=== PATIENT | male | born 1950 | race Caucasian/White ===

== ENCOUNTER → 2018-12-03 | Outpatient (CLI) | payer MEDICARE, BC ==
[~2018-12-03] MED LIST: REGADENOSON 0.4 MG/5 ML SYRINGE IV ONE
--- NOTE | 2018-12-03 09:32 | US ---
EXAMINATION TYPE: US duplex aorta DATE OF EXAM: 12/03/2018 COMPARISON: NONE CLINICAL HISTORY: I25.10. CAD EXAM MEASUREMENTS: Abdominal Aorta: Proximal: 2.5 x 2.5cm Mid: 2.6 x 2.7cm Distal: 4.5 x 3.5cm Bifurcation: RT: 1.3 x 1.5cm LT: 1.4 x 1.1cm Distal AAA with calcifications and plaque noted within Grayscale, color Doppler, spectral Doppler imaging performed. Aorta is somewhat tortuous with echogen ic appearance. There is color flow, suspect turbulent flow. IMPRESSION: Infrarenal abdominal aortic aneurysm.
--- NOTE | 2018-12-03 11:45 | P.STRESS ---
- Stress Test Note Stress Test Results/Findings: Exam Performed: NM stress lexiscan cardiolite Exam Date: 12/03/18 Reason for Exam: SOB Height: 5 ft 7 in Weight: 87.09 kg Protocol: LEXISCAN Stage: NA Duration of Exercise: NA Resting Heart Rate: 68 Resting Blood Pressure: 126/91 Maximum Achieved Heart Rate: 74 Maximum Achieved Blood Pressure: 131/85 85% PMHR: NA 100% PMHR: NA METS: NA Technologist Comment: Stress Test Results/Findings: This is a 68-year-old male with history of hypertension, diabetes, previous MT being evaluated for cardiac status. Stress data: Baseline EKG showed sinus rhythm with non specific intervertebral conduction delay and occasional PVCs. Blood pressure at rest was 126/91 with pulse rate of 68. A standard dose of Lexiscan was infused. EKGs during and after infusion did not reveal any significant changes from the baseline. Final impression: #1. Negative Lexiscan stress test #2. Report on echo images to begin by the radiologist
--- NOTE | 2018-12-03 13:23 | EST ---
Stress Test Results/Findings: Exam Performed: NM stress lexiscan cardiolite Exam Date: 12/03/18 Reason for Exam: SOB Height: 5 ft 7 in Weight: 87.09 kg Protocol: LEXISCAN Stage: NA Duration of Exercise: NA Resting Heart Rate: 68 Resting Blood Pressure: 126/91 Maximum Achieved Heart Rate: 74 Maximum Achieved Blood Pressure: 131/85 85% PMHR: NA 100% PMHR: NA METS: NA Technologist Comment: Stress Test Results/Findings: This is a 68-year-old male with history of hypertension, diabetes, previous [place] being evaluated for cardiac status. Stress data: Baseline EKG showed sinus rhythm with non specific intervertebral conduction delay and occasional PVCs. Blood pressure at rest was 126/91 with pulse rate of 68. A standard dose of Lexiscan was infused. EKGs during and after infusion did not reveal any significant changes from the baseline. Final impression: #1. Negative Lexiscan stress test #2. Report on nuclear images to begin by the radiologist SETH
--- NOTE | 2018-12-03 14:54 | NM ---
"EXAMINATION TYPE: NM stress lexiscan cardiolite DATE OF EXAM: 12/03/2018 COMPARISON: NONE HISTORY: Shortness of breath, history of myocardial infarction TECHNIQUE: After the intravenous administration of 10.01 mCi Tc 99m Sestamibi - Cardiolite resting S PECT images acquired 45 minutes post injection. The patient received 0.4mg Lexiscan, 26.1 mCi Tc 99m Sestamibi - Stress images obtained [address] injection FINDINGS: Review of stress and rest SPECT images demonstrates decreased radio pharmaceutical uptake along the i nferior wall on stress and rest images and some decreased uptake in the apex somewhat greater on stre ss as compared to rest images. Gated analysis shows global hypokinesis, possible paradoxical wall mot ion inferior wall, with an estimated left ventricular ejection fraction of 15 %. IMPRESSION: Findings compatible with prior infarct. 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 Ejection fraction calculated at 50%. Consider echocardiographic c orrelation. A Yellow level critical message alert has been initiated for Misbah Ha MD via the [facility] 36 0 | Critical Results System on 12/03/2018 2:51 PM. This message alert has been sent to Misbah Ha MD via the preferences provided by the clinician for the receipt of Radiology Critical Findings. Mess age ID [id number]."
== END | disposition home or self-care (01) ==
LOC: RADUSMAIN 07:41
PROVIDERS: ATTEND Family Medicine
DX: I71.4 Abdominal aortic aneurysm, without rupture (principal); I25.10 Atherosclerotic heart disease of native coronary artery without angina pectoris
CPT/HCPCS: 93017; 93979; 78452; A9500; J2785

== ENCOUNTER → 2019-01-01 | Outpatient (CLI) | payer MEDICARE, BC ==
[2019-01-01 15:01] LABS: HCT 42.4 % (39.0-53.0); HGB 14.2 gm/dL (13.0-17.5); MCH 33.4 pg (25.0-35.0); MCHC 33.6 g/dL (31.0-37.0); MCV 99.5 fL (80.0-100.0); Mean Platelet Volume 6.9; Platelet Count 250 k/uL (150-450); RBC 4.26 m/uL (4.30-5.90); RDW 12.8 % (11.5-15.5); WBC 9.6 k/uL (3.8-10.6)
[2019-01-01 15:13] LABS: Anion Gap 10 mmol/L; Blood Urea Nitrogen 22 mg/dL (9-20); Carbon Dioxide 26 mmol/L (22-30); Chloride 104 mmol/L (98-107); Potassium 4.5 mmol/L (3.5-5.1); Sodium 140 mmol/L (137-145)
== END | disposition home or self-care (01) ==
LOC: LABPAT 13:38
PROVIDERS: ATTEND Internal Medicine Cardiovascular Disease
DX: Z01.812 Encounter for preprocedural laboratory examination (principal)
CPT/HCPCS: 80051; 82565; 84520; 85027

== ENCOUNTER → 2019-01-10 | Day surgery (SDC) | payer MEDICARE, BC ==
[2019-01-08 15:43] VITALS: BMI 29.6
[~2019-01-10] MED LIST changes: +ALPRAZolam 0.25 MG TAB PO PRN; +ALPRAZolam 0.5 MG TAB PO PRN; +ASPIRIN 325 MG TAB PO STA; +ATORVASTATIN 80 MG TAB PO STA; +HEPARIN SODIUM 1,000 UN/ML (10ML VL) IV ONE; +HEPARIN SODIUM 1,000 UN/ML (10ML VL) ONE; +IOPAMIDOL-370 125ML BTL INJ ONE; +LIDOCAINE 1% INJ 10MG/ML (20 ML MDV) ONE; +LIDOCAINE 1% INJ 10MG/ML (20 ML MDV) SQ ONE; +MIDAZOLAM (PF) 2 MG/2 ML VIAL IV ONE; +NITROGLYCERIN SL TABS 0.4 MG TAB SUBLINGUAL PRN; -REGADENOSON 0.4 MG/5 ML SYRINGE IV ONE; +SODIUM CHLORIDE 0.9% 1,000 ML in EMPTY BAG 1 BAG IV ONE; +VERAPAMIL 2.5 MG/ML 2 ML AMP ONE; +VERAPAMIL SYRINGE (5 MG/10 ML) INTRAARTER ONE; +fentaNYL (PF) 50 MCG/ML 2 ML AMP IV ONE; +fentaNYL (PF) 50 MCG/ML 2 ML AMP ONE
[2019-01-10 09:51] VITALS: RESP 18; TEMP 96.8
[2019-01-10 10:03] LABS: Glucose,Whole Blood 118 mg/dL (75-99)
[2019-01-10 16:39] VITALS: BP 116/60; PULSE 66
--- NOTE | 2019-02-10 17:02 | P.CARDCATH ---
Date of Procedure: 01/10/19 Preoperative Diagnosis: Ischemic heart disease and exertional shortness of breath Postoperative Diagnosis: Stable coronary artery disease with total occlusion of the RCA, ischemic cardiomyopathy with ejection fraction about 30 percent Procedure(s) Performed: Left heart catheterization with selective coronary arteriography and left ventriculography Description of Procedure: HISTORY: This is a 68-year-old gentleman with history of known ischemic heart disease with previous inferior wall KS who was recently seen in the office with complaints of increasing shortness of breath. Patient is advised to have a cardiac catheterization to rule out any progression of ischemic heart disease. CONSENT:I have discussed the risks, benefits and alternative therapies for the above-mentioned procedure and for both sedation/analgesia as well as necessary blood product administration, if indicated, as they pertain to this patient. The patient has indicated understanding and acceptance of the risks and procedures discussed. PROCEDURE: Patient was brought to the lab in a fasting state. Patient was given some IV sedation. The right wrist is infiltrated with lidocaine and right radial artery was entered using Seldinger technique. A 6-Egyptian catheter was left in place and selective coronary arteriography and left ventriculography was performed. Patient tolerated the procedure well. TR band was applied for hemostasis. No immediate complications were noted and patient was transferred to [facility] in a stable condition Conscious Sedation: Versed 1mg Fentanyl 25 g Duration 22minutes HEMODYNAMICS: The aortic pressure is about 100/70. Left ventricular end- diastolic pressure is about 8-10. There was no gradient across the aortic valve SELECTIVE CORONARY ARTERIOGRAPHY: LEFT MAIN: This is of normal length and free of occlusive disease THE LEFT ANTERIOR DESCENDING CORONARY ARTERY: . This is a fair caliber vessel giving rise to good-sized diagonal branch. The LAD. Because small in caliber in the distal distribution. No significant focal occlusive disease noted in the LAD system THE LEFT CIRCUMFLEX AND IS CORONARY ARTERY: This is a moderate caliber vessel giving rise to small apical segment and good-sized OM branch. The circumflex coronary artery has diffuse mild plaque without any Sigmund focal occlusive lesions THE RIGHT CORONARY ARTERY: This is a codominant vessel which is totally occluded in the midportion. There are ipsilateral collateral filling the distal RCA which is being filled slowly. There is mild diffuse plaque in the distal RCA LEFT VENTRICULOGRAPHY: . This revealed hypokinesis of the inferobasal segment with overall left ankle function, moderate to severely impaired. Ejection fraction probably in the range of 30% FINAL IMPRESSION: Stable coronary artery disease with a total occlusion of the RCA. The left coronary system is free of any significant occlusive disease PLAN: Maximum medical therapy and this factor modification. If her LV function continues to be poor, patient may be candidate for AICD implantation PROGNOSIS: Guarded
== END ==
LOC: CATHCVL 09:19
PROVIDERS: ATTEND Internal Medicine Cardiovascular Disease
DX: I25.10 Atherosclerotic heart disease of native coronary artery without angina pectoris (principal); I11.0 Hypertensive heart disease with heart failure; I50.42 Chronic combined systolic (congestive) and diastolic (congestive) heart failure; I25.82 Chronic total occlusion of coronary artery; I25.5 Ischemic cardiomyopathy; E78.5 Hyperlipidemia, unspecified; I25.2 Old myocardial infarction; E11.9 Type 2 diabetes mellitus without complications; Z87.891 Personal history of nicotine dependence; J44.9 Chronic obstructive pulmonary disease, unspecified; Z79.84 Long term (current) use of oral hypoglycemic drugs; Z79.82 Long term (current) use of aspirin; Z79.899 Other long term (current) drug therapy
CPT/HCPCS: 93458; C1769 ×2; C1894; J2001; J3010; J1644; Q9967; J2250

== ENCOUNTER → 2019-08-08 | Outpatient (CLI) | payer MEDICARE, BC ==
--- NOTE | 2019-08-08 11:33 | XR ---
EXAMINATION TYPE: XR Hip Complete RT DATE OF EXAM: 08/08/2019 COMPARISON: NONE HISTORY: Pain TECHNIQUE: 2 views submitted FINDINGS: There is no evidence of erosive change or acute fracture. Mild concentric narrowing of the joint spac e. Calcifications in the pelvis likely vascular. IMPRESSION: 1. No evidence of acute fracture or dislocation. 2. Mild arthropathy.
== END | disposition home or self-care (01) ==
LOC: RADXRMAIN 09:34
PROVIDERS: ATTEND Family Medicine
DX: M16.11 Unilateral primary osteoarthritis, right hip (principal)
CPT/HCPCS: 73502

== ENCOUNTER → 2020-05-14 | Outpatient (CLI) | payer MEDICARE, BC ==
--- NOTE | 2020-05-17 08:33 | US ---
EXAMINATION TYPE: US scrotum with doppler. Grayscale and color Doppler Duplex imaging performed of mary cali scrotum. DATE OF EXAM: 05/14/2020 COMPARISON: NONE CLINICAL HISTORY: n43.3. Swelling left testicle EXAM MEASUREMENTS: TESTICLES: Right Testicle: 3.7 x 2.1 x 3.1 cm Left Testicle: 4.6 x 2.4 x 2.9 cm EPIDIDYMIS HEAD: Right Epididymis: 1.2 cm Left Epididymis: 1.1 cm Doppler performed to assess for testicular vascularity; good bilateral color flow and waveforms are s een. There is no evidence of testicular torsion. Presence of hydroceles: Yes, on the left measuring 10.6 x 7.7 x 8.4 cm Presence of varicoceles: No Large, left side hydrocele Satisfactory blood flow to both testicles noted. IMPRESSION: Massive large left scrotal fluid collection or hydrocele is present accounting for abnorm ality on physical exam.
== END | disposition home or self-care (01) ==
LOC: RADUSWWP 16:56
PROVIDERS: ATTEND Family Medicine
DX: N43.3 Hydrocele, unspecified (principal)
CPT/HCPCS: 76870; 93975

== ENCOUNTER → 2021-04-01 | Outpatient (CLI) | payer MEDICARE, BC ==
[2021-04-02 04:37] LABS: Magnesium 2.1 mg/dL (1.5-2.4)
[2021-04-02 04:38] LABS: African American GFR (CKD) 101.4 (60.0-200.0); Anion Gap 9.4 mmol/L (4.00-12.00); Calcium 9.2 mg/dL (8.7-10.3); Carbon Dioxide 25.6 mmol/L (21.6-31.8); Non-African American GFR(CKD) 87.5 (60.0-200.0)
== END | disposition home or self-care (01) ==
LOC: LABWHC1 16:06
PROVIDERS: ATTEND Internal Medicine Cardiovascular Disease
DX: I49.3 Ventricular premature depolarization (principal); I42.9 Cardiomyopathy, unspecified
CPT/HCPCS: 36415; 80048; 83735

== ENCOUNTER → 2021-10-04 | Outpatient (CLI) | payer MEDICARE, BC ==
[2021-10-04 11:20] LABS: African American GFR (CKD) >90 (>60 ml/min/1.73 sqM); Blood Urea Nitrogen 17 mg/dL (9-20); Non-African American GFR(CKD) 89 (>60 ml/min/1.73 sqM)
--- NOTE | 2021-10-04 12:06 | CT ---
EXAMINATION TYPE: CT chest w con DATE OF EXAM: 10/04/2021 COMPARISON: None HISTORY: pulmonary nodule CT DLP: 489.3 mGycm Automated exposure control for dose reduction was used. CONTRAST: CT scan of the chest is performed with IV Contrast, patient injected with 100 mL of Isovue 300. FINDINGS: LUNGS: New 5.5 mm pulmonary nodule superior segment left lower lobe seen best on image 26. No additio nal nodules are evident at this time. There is no evidence for infiltrate. No volume loss. There is n o pleural effusion or pneumothorax seen. The tracheobronchial tree is patent. MEDIASTINUM: There are no greater than 1 cm hilar or mediastinal lymph nodes. No pericardial effusi on is seen. Thoracic aorta is of normal caliber. The heart is not enlarged. Small hiatal hernia is n oted. UPPER ABDOMEN: 2 cm cyst upper pole left kidney. OTHER: No additional significant abnormality is seen. IMPRESSION: 5.5 mm nodular density left upper lobe. Consider follow-up study in one year.
--- NOTE | 2021-10-04 12:39 | CT ---
EXAMINATION TYPE: CT lumbar spine wo con DATE OF EXAM: 10/04/2021 11:46 AM COMPARISON: None HISTORY: low back pain CT DLP: 1013.5 mGycm Automated exposure control for dose reduction was used. Unenhanced CT of the lumbar spine was performed. Bone and soft tissue window settings are submitted as well as coronal and sagittal reconstructions. L1-L2: Normal disc space height. No disc herniation protrusion or central stenosis. No facet joint arthropathy. No evidence for foraminal encroachment. L2-L3: Normal disc space height. No disc herniation protrusion or central stenosis. No facet joint arthropathy. No evidence for foraminal encroachment. L3-L4: Mild degenerative space narrowing with mild posterior disc bulge. No evidence of herniation or protrusion. Foramina are patent bilaterally. Facet joint arthropathy. L4-L5: Moderate degenerative disc space narrowing with posterior disc bulge. Particularly of the lig amentum flavum and facet joint arthropathy contribute to moderate central stenosis. Left foraminal en croachment identified. L5-S1: Moderate to severe degenerative disc space narrowing. Posterior disc bulge with partial encaps ulating spur resulting in right lateral recess stenosis and right foraminal encroachment. There is infrarenal abdominal aortic aneurysm with estimated measurement of 6.1 x 5.5 cm. IMPRESSION: 1. Infrarenal abdominal aortic aneurysm. 2. Multilevel degenerative disc disease. 3. Moderate central stenosis L4-5.
== END | disposition home or self-care (01) ==
LOC: RADCTMAIN 10:21
PROVIDERS: ATTEND Family Medicine
DX: I71.4 Abdominal aortic aneurysm, without rupture (principal); M48.061 Spinal stenosis, lumbar region without neurogenic claudication; M51.37 Other intervertebral disc degeneration, lumbosacral region; R91.1 Solitary pulmonary nodule
CPT/HCPCS: 82565; 84520; 72131; 71260; 36415; Q9967

== ENCOUNTER → 2021-10-14 | Outpatient (CLI) | payer MEDICARE, BC ==
[2021-10-14 10:56] LABS: African American GFR (CKD) >90 (>60 ml/min/1.73 sqM); Blood Urea Nitrogen 16 mg/dL (9-20); Non-African American GFR(CKD) 87 (>60 ml/min/1.73 sqM)
--- NOTE | 2021-10-14 12:51 | CT ---
EXAMINATION TYPE: CT angio abdomen pelvis DATE OF EXAM: 10/14/2021 12:39 PM COMPARISON: HISTORY: AAA w/o rupture CT DLP: 922.1 mGycm Automated exposure control for dose reduction was used. TECHNIQUE: Performed without and with IV Contrast, patient injected with 100 mL of Isovue 370. . FINDINGS: LUNG BASES: Heart is enlarged. Subsegmental changes involving both lung bases most typical of atelect asis. ABDOMEN AND PELVIS: Moderate-sized hiatal hernia. Liver and spleen are homogeneous. Adrenal glands have a normal morpholo gy. No gallstones. Pancreas has a normal appearance. The bowel gas pattern nonspecific without obstru ction. Hypertrophic and degenerative change spine. No hydronephrosis or nephrolithiasis. Hypodensitie s within the kidneys bilaterally are most likely on the basis of simple cysts with the largest seen i nvolving the upper pole the left kidney measuring 2.1 cm and 5 Hounsfield units. Fat-containing bilat eral inguinal hernia and small periumbilical fat-containing hernia. AORTA: There is ectasia of the aorta with a single renal arteries demonstrate a atherosclerotic change but n o significant stenosis. Origin of the SMA and celiac axis appear to be patent with mild atherosclerot ic changes. There is a infrarenal abdominal aortic aneurysm originating approximately 3 to 4 cm below the lowest renal artery and extending to the aortic bifurcation with a maximal dimension of 4.5 x 4.9 cm. Mild e ctasia of the iliac arteries demonstrate atherosclerotic changes IMPRESSION: 1. Infrarenal abdominal aortic aneurysm extending to the aortic bifurcation measuring 4.5 x 4.9 cm.
== END | disposition home or self-care (01) ==
LOC: RADCTMAIN 09:54
PROVIDERS: ATTEND Surgery
DX: I71.4 Abdominal aortic aneurysm, without rupture (principal)
CPT/HCPCS: 82565; 84520; 36415; 74174; Q9967

== ENCOUNTER 2021-10-25 06:55 | Inpatient (IN) | payer MEDICARE, BC ==
[2021-10-21 11:57] VITALS: BMI 29.6
[~2021-10-25 06:55] MED LIST changes: -ALPRAZolam 0.25 MG TAB PO PRN; -ALPRAZolam 0.5 MG TAB PO PRN; -ASPIRIN 325 MG TAB PO STA; -ATORVASTATIN 80 MG TAB PO STA; -HEPARIN SODIUM 1,000 UN/ML (10ML VL) IV ONE; -HEPARIN SODIUM 1,000 UN/ML (10ML VL) ONE; -IOPAMIDOL-370 125ML BTL INJ ONE; -LIDOCAINE 1% INJ 10MG/ML (20 ML MDV) ONE; -LIDOCAINE 1% INJ 10MG/ML (20 ML MDV) SQ ONE; -MIDAZOLAM (PF) 2 MG/2 ML VIAL IV ONE; -NITROGLYCERIN SL TABS 0.4 MG TAB SUBLINGUAL PRN; -VERAPAMIL 2.5 MG/ML 2 ML AMP ONE; -VERAPAMIL SYRINGE (5 MG/10 ML) INTRAARTER ONE; -fentaNYL (PF) 50 MCG/ML 2 ML AMP IV ONE; -fentaNYL (PF) 50 MCG/ML 2 ML AMP ONE
[2021-10-25 07:29] LABS: Glucose,Whole Blood 125 mg/dL (75-99)
[2021-10-25 07:44] LABS: Basophils # (A) 0.1 k/uL (0-0.2); Basophils % (A) 1 %; Eosinophils # (A) 0.3 k/uL (0-0.7); Eosinophils % (A) 4 %; HCT 44.4 % (39.0-53.0); HGB 14.8 gm/dL (13.0-17.5); Lymphocytes # (A) 2.1 k/uL (1.0-4.8); Lymphocytes % (A) 27 %; MCH 33.7 pg (25.0-35.0); MCHC 33.4 g/dL (31.0-37.0); MCV 100.9 fL (80.0-100.0); Mean Platelet Volume 7.1; Monocytes # (A) 0.7 k/uL (0-1.0); Monocytes % (A) 9 %; Neutrophils # (A) 4.4 k/uL (1.3-7.7); Neutrophils % (A) 56 %; Platelet Count 277 k/uL (150-450); RDW 12.2 % (11.5-15.5); WBC 7.9 k/uL (3.8-10.6)
[2021-10-25 07:56] LABS: African American GFR (CKD) >90 (>60 ml/min/1.73 sqM); Anion Gap 7 mmol/L; Blood Urea Nitrogen 17 mg/dL (9-20); Calcium 8.9 mg/dL (8.4-10.2); Carbon Dioxide 29 mmol/L (22-30); Chloride 105 mmol/L (98-107); Glucose 134 mg/dL (74-99); Non-African American GFR(CKD) >90 (>60 ml/min/1.73 sqM); Potassium 4.5 mmol/L (3.5-5.1); Sodium 141 mmol/L (137-145)
[2021-10-25] MEDS ORDERED: NEOSTIGMINE 1 MG/ML 10 ML VIAL ONE (09:25)
[2021-10-25] MEDS ORDERED: ETOMIDATE 2 MG/ML 10 ML VIAL ONE (09:25)
[2021-10-25] MEDS ORDERED: HEPARIN SODIUM,PORCINE 10,000 UNIT/ML 1 ML VIAL ONE (09:25)
[2021-10-25] MEDS ORDERED: MIDAZOLAM 2 MG/2 ML VIAL ONE (09:25)
[2021-10-25] MEDS ORDERED: GLYCOPYRROLATE 0.2 MG/ML 2 ML VIAL ONE (09:25)
[2021-10-25] MEDS ORDERED: fentaNYL (PF) 50 MCG/ML 2 ML AMP ONE (09:25)
[2021-10-25] MEDS ORDERED: SUCCINYLCHOLINE CHLORIDE 100 MG/5 ML SYR IV ONE (09:25)
[2021-10-25] MEDS ORDERED: ROCURONIUM 10 MG/ML (5 ML VIAL) IV ONE (09:25)
[2021-10-25] MEDS ORDERED: PHENYLEPHRINE-0.9% NACL SYG 1,000 MCG/10 ML SYRINGE ONE (09:25)
[2021-10-25] MEDS ORDERED: IOPAMIDOL-250 100ML BTL INTRAARTER ONE ×2 (11:30)
[2021-10-25] MEDS ORDERED: NALOXONE 0.4 MG/ML 1 ML VIAL IVP PRN (11:36)
--- NOTE | 2021-10-25 11:36 | P.OP ---
Description of Procedure: Date: 10/25/2021 Preoperative diagnosis: Asymptomatic Infrarenal 6.1 cm AAA Postoperative diagnosis: Same Procedure: 1. Percutaneous Endovascular aortic repair with Gorham device. 2. Ultrasound-guided bilateral common femoral artery access Surgeon: Cyndi SKAGGS Anesthesia: General Estimated blood loss: 25 mL Complications: None Condition: Stable Disposition: Palpable DP pulses bilaterally Findings: Greater than 70% stenosis of the right common iliac artery just after the bifurcation. Stenosis noted at the left common iliac due to tortuosity. Indications: 71-year-old gentleman presented to the office for workup of a 6.[address] was evaluated and patient was a candidate for endovascular repair and presents today for endovascular aortic repair with alto. Operative narrative: After written and informed consent was obtained from the patient all risks benefits and complications were described the patient was brought to the Dental Assisting Instructor and laid in a supine position. The area of the groins were prepped and draped in usual sterile fashion after appropriate anesthetic was performed per the anesthesiologist. A timeout was performed in normal fashion and antibiotics were administered prior to incisions. Utilizing ultrasound bilateral common femoral arteries were visualized demonstrating patency with minimal calcification. Under ultrasound guidance utilizing a multipurpose needle bilateral common femoral arteries were accessed and guidewire was placed followed by deployment of 2 Perclose closure devices for each femoral artery. Utilizing Seldinger technique and 8-Taiwanese sheath was then placed and patient was administered heparin and followed with ACTs. 035 Glidewire was then placed up the right femoral sheath and exchanged for a Lunderquist wire through an angled glide catheter. The left femoral artery was then utilized and guidewire was placed followed by pigtail catheter and aort ogram was obtained. Utilizing the Lunderquist wire a 26mm main body device was then loaded over the guidewire after the 8-Taiwanese sheath was removed. Delivery system was then placed 1 cm proximal to the intended landing site and the aortic body was oriented for appropriate access for the contralateral limb. Delivery system was then retracted out of the sheath and the aortic body radiopaque marke rs were verified to be in the correct position. First segment of the graft was then deployed in normal fashion by releasing and pulling the knob in normal fashion. Balloon injection port was then inflated utilizing a 4-1 saline contrast mixture in order to open the mid crown. Balloon was then deflated. Precise positioning was then performed with utilizing the radiopaque markers and parallax was removed and our to land at the renal arteries. Pigtail catheter was then retracted away from the proximal stent and the proximal stent was released in normal fashion. Polymer was then utilized and filled through the polymer port which was visualized under fluoroscopy. The stiff Lunderquist wire was then retracted within the ipsilateral limb. Attention was then placed to accessing the contralateral limb. Utilizing the Glidewire and angled glide catheter the contralateral limb was accessed and pigtail catheter was placed. Pigtail catheter was then spun to verify intragraft cannulation. A stiff wire was then placed within the pigtail catheter and retrograde angiogram was obtained demonstrating the internal iliac artery takeoff. Measurements were obtained and a 22 x 120 mm Ovation limb was chosen to be deployed and deployed in normal fashion. Once completed the aortic main body was completely deployed in normal fashion. Utilizing the balloon balloon angioplasty was performed at the ring to further mold the polymer to the aortic neck. Once completed the aortic body deployment sheath was removed in normal fashion. Pigtail catheter was then placed over the Lunderquist wire and retrograde angiogram was obtained with measurements to the internal iliac artery on the ipsilateral limb. When advancing the sheath due to stenosis and tortuosity the contralateral limb did retract slightly and therefore another limb was needed. A 18 x 140 mm ipsilateral Ovation limb was chosen and deployed in normal fashion. Due to the tortuosity a balloon was required to be placed into the limb after deployment of the ipsilateral limb to allow for the 22 x 140 mm contralateral extension to be placed. Contralateral extension was then placed in normal fashion after retrograde angiogram was obtained. Once completed two 12 x 40mm balloons were placed up each iliac limb and balloon angioplasty was performed through its entirety. Once completed balloons were removed and pigtail catheter was placed above the graft and final angiogram was obtained demonstrating exclusion of the aneurysm with no evidence of endoleak's. All guidewires and catheters were then removed and the Perclose closure devices were closed in normal fashion. The areas were then cleansed and dressings were placed. The patient tolerated procedure well and had palpable DP pulses and was sent to PACU for recovery.
[2021-10-25] MEDS ORDERED: SODIUM CHLORIDE 0.9% 1,000 ML IV ONE ×3 (11:53→12:30)
--- NOTE | 2021-10-25 12:15 | IR ---
Fluoroscopy HISTORY: Abdominal aortic aneurysm 19.4 minutes fluoroscopy time supplied to the referring clinician. 151 intraoperative C-arm images d ocument the procedure. See dictated report from vascular surgery.
[2021-10-25 12:27] LABS: Glucose,Whole Blood 137 mg/dL (75-99)
[2021-10-25] MEDS: SODIUM CHLORIDE 0.9% 1,000 ML in EMPTY BAG 1 BAG IV SCH (15:03)
[2021-10-25] MEDS: carvediloL 3.125 MG TAB PO SCH (17:00)
[2021-10-25] MEDS: SACUBITRIL/VALSARTAN 24 MG-26 MG TABLET PO SCH (20:35)
[2021-10-25] MEDS ORDERED: MONTELUKAST 10 MG TAB PO SCH (21:00)
[2021-10-25] MEDS ORDERED: ATORVASTATIN 40 MG TAB PO SCH (21:00)
[2021-10-26] MEDS: SODIUM CHLORIDE 0.9% 1,000 ML in EMPTY BAG 1 BAG IV SCH ×2 (01:32→08:26)
[2021-10-26] MEDS: carvediloL 3.125 MG TAB PO SCH ×2 (06:31→17:45)
[2021-10-26 06:57] LABS: Basophils # (A) 0.1 k/uL (0-0.2); Basophils % (A) 1 %; Eosinophils # (A) 0.2 k/uL (0-0.7); Eosinophils % (A) 2 %; HCT 42.1 % (39.0-53.0); HGB 14.2 gm/dL (13.0-17.5); Lymphocytes # (A) 1.9 k/uL (1.0-4.8); Lymphocytes % (A) 17 %; MCH 33.9 pg (25.0-35.0); MCHC 33.7 g/dL (31.0-37.0); MCV 100.6 fL (80.0-100.0); Mean Platelet Volume 7.4; Monocytes # (A) 0.8 k/uL (0-1.0); Monocytes % (A) 8 %; Neutrophils # (A) 7.6 k/uL (1.3-7.7); Neutrophils % (A) 71 %; Platelet Count 214 k/uL (150-450); RBC 4.19 m/uL (4.30-5.90); WBC 10.8 k/uL (3.8-10.6)
[2021-10-26 07:18] LABS: African American GFR (CKD) >90 (>60 ml/min/1.73 sqM); Anion Gap 6 mmol/L; Blood Urea Nitrogen 13 mg/dL (9-20); Calcium 8.2 mg/dL (8.4-10.2); Carbon Dioxide 22 mmol/L (22-30); Chloride 107 mmol/L (98-107); Glucose 125 mg/dL (74-99); Non-African American GFR(CKD) >90 (>60 ml/min/1.73 sqM); Potassium 4.4 mmol/L (3.5-5.1); Sodium 135 mmol/L (137-145)
[2021-10-26 08:23] VITALS: BP 123/78; PULSE 82; RESP 18; TEMP 98.4
[2021-10-26] MEDS: SACUBITRIL/VALSARTAN 24 MG-26 MG TABLET PO SCH (08:24)
[2021-10-26] MEDS ORDERED: ASPIRIN 81 MG PO SCH (09:00)
[2021-10-26] MEDS ORDERED: MULTIVITAMINS, THERA 1 EACH TAB PO SCH (09:00)
[2021-10-26] MEDS ORDERED: FUROSEMIDE 20 MG TAB PO SCH (09:00)
[2021-10-26] MEDS ORDERED: ISOSORBIDE MONONITRATE ER 30 MG TAB.ER.24H PO SCH (09:00)
--- NOTE | 2021-10-26 11:16 | P.DS ---
Providers Date of admission: 10/25/21 06:55 Expected date of discharge: 10/26/21 Attending physician: Jerad Hanna DO Consults: 10/25/21 06:02 Consult to Anesthesia Routine Consulting Provider: Anesthesia,Services Consult Reason/Comments: General anesthesia for Aortic Stent procedure 10/25/21 11:38 Consult Physician Routine Consulting Provider: Misbah Ha Consult Reason/Comments: medical management Do you want consulting provider notified?: Yes [facility] Course: This is 71-year-old male who was seen in the office and worked up for his 6.1 cm abdominal aortic aneurysm. Patient elected for endovascular repair and came in for scheduled endovascular aortic repair with all toe. He is postop day #1 for percutaneous endovascular aortic repair with alto device. Findings included greater than 70% stenosis of the right common iliac artery just after the bifurcation. Stenosis noted at the left common iliac due to tortuosity. He is seen and evaluated and reports doing well. Bilateral groin sites clean dry and intact. He is able to move bilateral lower extremities without any difficulty. He denies any shortness of breath or chest pain. Vital signs have been stable, he is afebrile. He is tolerating his diet. Plan is for discharge home this afternoon. The impression and plan of care has been dictated as directed. Dr. Lazar I performed a history and examination of this patient, discussed the same with the dictator. I agree with the dictator's note ,documented as a scribe. Any additional findings or plans will be noted. Procedures: Preoperative diagnosis: Asymptomatic Infrarenal 6.1 cm AAA Postoperative diagnosis: Same Procedure: 1. Percutaneous Endovascular aortic repair with Candor device. 2. Ultrasound-guided bilateral common femoral artery access Patient Condition at Discharge: Stable Plan - Discharge Summary Discharge Rx Participant: No New Discharge Prescriptions: Continue Furosemide [Lasix] 20 mg PO DAILY #30 tab Aspirin 325 mg PO DAILY #30 tab Montelukast [Singulair] 10 mg PO HS #30 tab Isosorbide Mononitrate [Isosorbide Mononitrate ER] 30 mg PO DAILY metFORMIN HCL 500 mg PO BID Dulaglutide [Trulicity] 0.75 mg SQ WE carvediloL [Coreg] 3.125 mg PO BID-W/MEALS Sacubitril/Valsartan [Entresto 24 mg-26 mg Tablet] 1 each PO BID Atorvastatin [Lipitor] 40 mg PO HS Multivit-Min/FA/Lycopen/Lutein [Centrum Silver Men Tablet] 1 each PO DAILY Discharge Medication List Aspirin 325 mg PO DAILY #30 tab 05/05/15 [Rx] Furosemide [Lasix] 20 mg PO DAILY #30 tab 05/05/15 [Rx] Montelukast [Singulair] 10 mg PO HS #30 tab 05/05/15 [Rx] Isosorbide Mononitrate [Isosorbide Mononitrate ER] 30 mg PO DAILY 01/08/19 [History] metFORMIN HCL 500 mg PO BID 01/08/19 [History] Atorvastatin [Lipitor] 40 mg PO HS 10/21/21 [History] Dulaglutide [Trulicity] 0.75 mg SQ WE 10/21/21 [History] Multivit-Min/FA/Lycopen/Lutein [Centrum Silver Men Tablet] 1 each PO DAILY 10/21/21 [History] Sacubitril/Valsartan [Entresto 24 mg-26 mg Tablet] 1 each PO BID 10/21/21 [History] carvediloL [Coreg] 3.125 mg PO BID-W/MEALS 10/21/21 [History] Follow up Appointment(s)/Referral(s): Misbah Ha MD [Primary Care Provider] - 1 Week Jerad Hanna DO [STAFF PHYSICIAN] - 1 Week Patient Instructions/Handouts: Endovascular Aneurysm Repair of Abdominal Aorta (DC) Activity/Diet/Wound Care/Special Instructions: No strenuous activity or heavy lifting greater than 5-10 pounds until cleared by vascular surgeon May shower starting tomorrow 10/27/2021, no soaking or tub baths You may remove dressings prior to showering Do not drive for 24-48 hours Discharge Disposition: HOME SELF-CARE
--- NOTE | 2021-10-26 14:28 | CONS ---
CONSULTATION 71-year-old white male status post aneurysm repair inferior renal artery. He is having no chest pain or shortness of breath. His size of the artery was 6.1 x 5.5 cm. He is breathing good. History of COPD, nicotine addiction, atrial fibrillation, diabetes. 14-point review of systems otherwise negative. MEDICATIONS: See list. ALLERGIES: See list. He is in no acute distress answers all questions appropriately. CARDIOVASCULAR S1, S2. LUNGS clear. GI soft. HEMATOLOGY: Negative Homans. Bandage on his belly. ASSESSMENT AND PLAN: 1. Inferior abdominal aortic aneurysm. 2. Inferior renal repair with good result. He is asymptomatic at this time. Pain control. Continue current treatment. 3. Diabetes. Accu-Cheks. 4. Home medications. MMODL / IJN: [id number] /
== END 2021-10-26 18:38 | disposition home or self-care (01) | DRG 269 ==
LOC: 2ORMAIN 06:55 → 3SCARD 12:09
PROVIDERS: ADMIT Surgery; ATTEND Surgery
PROC: B4101ZZ Fluoroscopy of Abdominal Aorta using Low Osmolar Contrast (ICD-10-PCS; 2021-10-25)
PROC: 04V03DZ Restriction of Abdominal Aorta with Intraluminal Device, Percutaneous Approach (ICD-10-PCS; principal; 2021-10-25 09:30)
DX: I71.4 Abdominal aortic aneurysm, without rupture (principal); E11.9 Type 2 diabetes mellitus without complications; I48.91 Unspecified atrial fibrillation; Z20.822 Contact with and (suspected) exposure to COVID-19; I70.8 Atherosclerosis of other arteries; J44.9 Chronic obstructive pulmonary disease, unspecified; Z87.891 Personal history of nicotine dependence; Z79.84 Long term (current) use of oral hypoglycemic drugs; Z79.82 Long term (current) use of aspirin
CPT/HCPCS: 34705; 80048; 85025; 86850; 86900; 86901; 87635

== ENCOUNTER 2023-03-02 10:40 | Day surgery (SDC) | payer MEDICARE, BC ==
[2023-02-28 08:56] VITALS: BMI 30.1
--- NOTE | 2023-03-01 23:38 | HP ---
HISTORY AND PHYSICAL CHIEF COMPLAINT: Cyst of the left earlobe. HISTORY OF PRESENT ILLNESS: This patient is a 72-year-old male, who was recently seen in my office complaining of having a recurrent cyst of the left ear. Unfortunately, the patient states that several times he has squeezed the area, and it has extruded a cheesy-type substance. At the time that the patient was seen in the office, clinical examination of the ear revealed approximately 0.4 cm cystic lesion of the left earlobe. It was recommended the patient undergo complete excision of this area, possible wedge excision of this area under general anesthesia. PAST MEDICAL HISTORY: Reveals the patient has allergies to Zyban. CURRENT MEDICATIONS: Include: 1. Spiriva. 2. Metformin. 3. Lasix. 4. Trulicity. 5. Lipitor. 6. Coreg. 7. Imdur. 8. Entresto. 9. Baby aspirin. 10.Singulair. 11.Nitroglycerin. 12.Prilosec. REVIEW OF SYSTEMS: Reveals, CARDIOVASCULAR: Positive for hypertension and congestive heart failure. RESPIRATORY: Positive for COPD/emphysema. GASTROINTESTINAL: Positive for GERD (gastroesophageal reflux disorder). METABOLIC/ENDOCRINE: Positive for hypercholesterolemia and type 2 diabetes mellitus. The remainder of the review of systems is essentially unremarkable. PREVIOUS SURGERIES: Include tonsillectomy, colonoscopy, and a procedure for a triple aneurysm. PHYSICAL EXAMINATION: HEENT: The patient is normocephalic. Tympanic membranes are normal. Examination of the patient's left earlobe reveals a 4 cm well-circumscribed fluctuant nontender mass located in the left earlobe. The right ear is unremarkable. Pupils are equal, round, and reactive to light and accommodation. Extraocular movements are within normal limits. Intranasal examination reveals severe septal deviation with compensatory hypertrophy of the inferior turbinates. Examination of the oropharynx and the remainder of the head and neck exam within normal limits. CHEST/CARDIOVASCULAR: Both lung pat are clear, but sounds are distant. There are no rales, wheezes, or rhonchi. The patient is in regular sinus rhythm. S1 and S2 are present without evidence of any murmurs, S3s, or S4s. Peripheral pulses are bilaterally symmetrical. ABDOMEN: There is no evidence of any masses, megaly, or tenderness. The abdomen is soft. SKIN: Unremarkable. MUSCULOSKELETAL/NEUROLOGICAL: Within normal limits. RECTAL: Deferred at this time as the patient has this done on a regular basis at his family physician's office. The remainder of the physical exam is unremarkable. ASSESSMENT: Cystic lesion of the left ear. PLAN: The patient is scheduled to undergo complete excision/wedge excision of cystic lesion of the left ear under general anesthesia in a.m. Attention, RNs in the pre-surgical area: I have ordered for this patient to receive 1000 mg of Ofirmev IV to be given once an intravenous line has been established. I have not ordered any pre-surgical prophylactic antibiotics. If the Pharmacy Department sends any pre-surgical prophylactic antibiotics to the pre-surgical area for this patient, please cancel that order and return the medication to the Pharmacy Department. Also, please make sure that the patient's account is credited appropriately. I have discussed the risks, benefits and alternative therapies for the above-mentioned procedure and for both sedation/analgesia as well as necessary blood product administration, if indicated, as they pertain to this patient. The patient has indicated his understanding and acceptance of the risks and procedures discussed. MMMELANIEL / KARINEN: [id number] /
[~2023-03-02 10:40] MED LIST changes: +Pre Op ABX Message 1 EACH MISC MISCELLANE ONE; -SODIUM CHLORIDE 0.9% 1,000 ML in EMPTY BAG 1 BAG IV ONE
[2023-03-02] MEDS ORDERED: ONDANSETRON 4 MG/2 ML VIAL IVP ONE (10:51)
[2023-03-02] MEDS ORDERED: DEXAMETHASONE SOD PHOSPHATE 4 MG/ML 1 ML VIAL IV ONE (10:51)
[2023-03-02] MEDS ORDERED: HYDROmorphone 0.5 MG/0.5 ML SYRINGE IVP PRN (10:51)
[2023-03-02] MEDS ORDERED: MIDAZOLAM 2 MG/2 ML VIAL IV PRN (10:51)
[2023-03-02] MEDS ORDERED: LACTATED RINGERS 1,000 ML IV SCH (10:51)
[2023-03-02 11:12] VITALS: RESP 16
[2023-03-02 11:22] LABS: Glucose,Whole Blood 113 mg/dL (70-110)
[2023-03-02] MEDS ORDERED: ACETAMINOPHEN IV (For NPO) 1,000 MG in EMPTY BAG 1 BAG IVPB ONE (12:10)
[2023-03-02] MEDS ORDERED: fentaNYL (PF) 50 MCG/ML 2 ML AMP ONE (12:57)
[2023-03-02] MEDS ORDERED: MIDAZOLAM 2 MG/2 ML VIAL ONE (12:57)
[2023-03-02] MEDS ORDERED: LIDOCAINE 2% INJ 20 MG/ML (2 ML VIAL) ONE (12:57)
[2023-03-02] MEDS ORDERED: PROPOFOL 10 MG/ML 20 ML VIAL IV ONE (12:57)
[2023-03-02] MEDS ORDERED: PHENYLEPHRINE-0.9% NACL SYG 1,000 MCG/10 ML SYRINGE ONE (12:57)
[2023-03-02] MEDS ORDERED: LACTATED RINGERS 1,000 ML IV ONE (13:32)
[2023-03-02 15:00] VITALS: TEMP 96.8
[2023-03-02 16:10] LABS: Glucose,Whole Blood 124 mg/dL (70-110)
[2023-03-02 16:23] VITALS: BP 116/72; PULSE 64
--- NOTE | 2023-03-07 07:39 | OP ---
OPERATIVE REPORT DATE OF SERVICE : 03/02/2023 PREOPERATIVE DIAGNOSIS: Lesion of the left earlobe, specimen sent to the pathology department for permanent sectioning. POSTOPERATIVE DIAGNOSIS: Lesion of the left earlobe, specimen sent to the pathology department for permanent sectioning. ANESTHESIA: General. PROCEDURES PERFORMED: Complete wedge excision of lesion of the left earlobe. COMPLICATIONS: None. ESTIMATED BLOOD LOSS: Less than 20 mL. DESCRIPTION OF PROCEDURE: This procedure took approximately 1 hour, which is somewhat longer than generally these procedures. The patient was placed on operating table in supine position. After uneventful induction and endotracheal intubation, satisfactory general anesthesia was obtained. Next, the patient's left ear was prepped and draped in usual customary fashion. Palpation of the patient's ear revealed that there was a subcutaneous lesion noted, which appeared to be somewhat firm. That is to say, the lesion did not feel cystic. Therefore, the proposed excision of this lesion was done by using a Codman marker to make a proposed wedge excision of a portion of the patient's left earlobe. No local anesthetic anesthesia was used. Next after outlining the proposed excision with the proposed wedge excision with a Codman marker, a #11 stab scalpel was used to excise the wedge in a through and through fashion from skin anteriorly to skin posteriorly in the usual fashion. Inspection of the wedge revealed that it did in fact include the majority of this lesion. A tiny portion remained on the superior aspect of the excision and this was removed using a #15 scalpel. All specimens were sent to Pathology for permanent sectioning. Hemostasis was obtained using suction cautery. Next, excision was closed in a complex fashion in 3 layers. That is to say, the subcutaneous layers were reapproximated using 5-0 Vicryl in interrupted buried fashion. Next, the subdermal fat and subdermal tissue were approximated using 5-0 Vicryl in an interrupted buried fashion, both anteriorly and posteriorly. Finally, the skin was closed both anteriorly and posteriorly and inferiorly using a combination of 4-0 chromic in interrupted buried fashion, and a few 5-0 Vicryl rapid absorbing Vicryl sutures, both interrupted in a simple fashion to reinforce the closure. At this point, the procedure was terminated. Estimated blood loss of less than 20 mL. All specimens were sent to Pathology for permanent sectioning. The patient tolerated the procedure well and the patient was returned to the recovery room in satisfactory condition. Final pathology is pending. MMODL / IJN: [id number] /
== END 2023-03-02 16:41 | disposition home or self-care (01) ==
LOC: OR 10:40
PROVIDERS: ATTEND Otolaryngology
DX: L72.0 Epidermal cyst (principal); I25.2 Old myocardial infarction; I10 Essential (primary) hypertension; E78.5 Hyperlipidemia, unspecified; J44.9 Chronic obstructive pulmonary disease, unspecified; G47.33 Obstructive sleep apnea (adult) (pediatric); E11.9 Type 2 diabetes mellitus without complications; Z87.891 Personal history of nicotine dependence; Z79.84 Long term (current) use of oral hypoglycemic drugs; Z79.85 Long-term (current) use of injectable non-insulin antidiabetic drugs; Z79.899 Other long term (current) drug therapy
CPT/HCPCS: 88304; 11442; 13151; J2250; J1100; J2405; J3010; J0131; J2370; J2704; J2001